=== PATIENT | female | born 1950 | race Caucasian/White ===

== ENCOUNTER 2019-09-05 10:53 | Day surgery (SDC) | payer MEDICARE ==
[2019-09-02 16:28] LABS: Absolute Lymphocytes (CBC) 1.8 K/uL (0.7-4.9); Basophils % 1.4 % (0-1.3); Hematocrit 36.6 % (36.0-45.0); Lymphocytes % 29.3 % (15.3-44.8); MPV 9.9 fL (7.6-11.3); RBC Red Blood Cell Count 4.09 M/uL (3.86-4.86)
[2019-09-02 16:33] LABS: Potassium 3.7 mmol/L (3.5-5.1)
--- NOTE | 2019-09-03 07:25 | EKG ---
Test Date: 2019-09-02 Test Time: 15:13:58 Engine Assembler: JEFF MEASUREMENT RESULTS: Intervals: Rate: 53 NE: 172 QRSD: 90 QT: 408 QTc: 382 Daisy: P: 72 NE: 172 QRS: 44 T: 65 INTERPRETIVE STATEMENTS: Sinus bradycardia Otherwise normal ECG No previous ECG available for comparison Electronically Signed On 09-03-19 07:23:43 LIABILITY ANALYST by Juan Garcia
--- OUTSIDE RECORDS SUMMARY | 2019-09-05 10:56 | XMS REPORT ---
:1950 Author Organization eClinicalWorks Care Team Providers Name Role Phone Zofia Whitaker Provider Role Unavailable Allergies No Known Allergies Problems Problem Type Condition Code Onset Dates Condition Status Problem CPAP (continuous positive airway Z99.89 Active pressure) dependence Problem Pain in left knee M25.562 Active Problem Other abnormal and inconclusive R92.8 Active findings on diagnostic imaging of breast Problem Pain of right sacroiliac joint M53.3 Active Assessment Encounter for screening mammogram Z12.31 Active for breast cancer Problem Depression screening Z13.31 Active Problem Onychomycosis B35.1 Active Problem Irritable bowel syndrome with K58.1 Active constipation Problem Pain in right knee M25.561 Active Problem S/P eye surgery Z98.890 Active Problem Ingrown toenail of right foot L60.0 Active Problem Depression, unspecified depression F32.9 Active type Problem Asthma, unspecified asthma J45.909 Active severity, unspecified whether complicated, unspecified whether persistent Problem Hypothyroidism, unspecified type E03.9 Active Problem History of cerebrovascular accident Z86.73 Active Problem Seasonal allergies J30.2 Active Problem History of CVA (cerebrovascular Z86.73 Active accident) without residual deficits Problem Tobacco abuse counseling Z71.6 Active Problem Abnormal mammogram R92.8 Active Problem MAME (obstructive sleep apnea) G47.33 Active Medications No Known Medications Results No Known Results Summary Purpose eClinicalWorks Submission
[2019-09-05] MEDS ORDERED: Ringers Lactate 1,000 ML IV ONE (11:11)
[2019-09-05] MEDS ORDERED: FENTANYL CITR 100 MCG/2 ML ONE ×2 (11:39→12:29)
[2019-09-05] MEDS ORDERED: MIDAZOLAM HCL 2 MG/2 ML INJ ONE (11:39)
[2019-09-05] MEDS ORDERED: PROPOFOL 200 MG/20 ML VIAL IV ONE (11:39)
[2019-09-05] MEDS ORDERED: LIDOCAINE 2% MPF 5 ML VIAL ONE (11:40)
[2019-09-05] MEDS: BUPIVACA 0.5%/EPI 0.0005%/PF 30 ML VIAL ONE ×2 (11:55→12:48)
[2019-09-05] MEDS: CEFAZOLIN/SWI 1gm 1 GM/10 ML SYR ONE ×2 (11:56→12:03)
[2019-09-05] MEDS ORDERED: dexAMETHasone 10 MG/ML VIAL ONE (12:29)
[2019-09-05] MEDS: Ringers Lactate 1,000 ML IV ONE ×2 (12:31→12:51)
[2019-09-05] MEDS ORDERED: ONDANSETRON 4 MG/2 ML VIAL ONE (12:49)
--- NOTE | 2019-09-05 12:54 | P.BOP ---
Preoperative diagnosis: left knee pain with mechanical symptoms Postoperative diagnosis: same with grade 3 cm medial, 2 PF, displaced MM tear Primary procedure: left knee arthoscopy with MM debridement Estimated blood loss: 10 Anesthesia: General Complications: None Transferred to: Recovery Room Condition: Good
[2019-09-05] MEDS: HYDROMORPHONE HCL 1 MG/ML INJ ONE ×2 (13:15→13:20)
[2019-09-05] MEDS ORDERED: TRAMADOL 37.5mg/APAP 325mg PER TAB ONE (13:49)
[2019-09-05 14:14] VITALS: BP 98/44; TEMP 97.3; O2SAT 94
--- NOTE | 2019-09-05 23:21 | OP ---
Date of Procedure: 09/05/2019 Surgeon: Valentino Chakraborty MD Preoperative Diagnosis: Left knee pain with mechanical symptoms. 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 2.Grade 2 chondromalacia of patellofemoral joint. 3.Displaceable medial meniscal tear. Procedure: Left knee arthroscopy with debridement of medial meniscal tear. Estimated Blood Loss: Less than 10 mL. Complications: No complications. Specimen: No pathology specimens sent. Indications For Operation: Ms. Gavin is a 69-year-old female who came to see me with complaints o f pain and mechanical symptoms in her left knee. She describes these symptoms primarily as being mec hanical. X-rays and MRI demonstrate she does have some degenerative articular lesions and she is juliette d that this is not helpful for degenerative articular problems. However, arthroscopy could help with the meniscal pathology and may alleviate her mechanical symptoms. She states she understands things as presented and agrees to proceed. Description Of Procedure: The patient was taken to the operating room and placed in supine position. General anesthesia was obtained by staff. Following this, a well-padded tourniquet was placed on t he superior left thigh. Left lower extremity was then prepped and draped in usual sterile fashion fo r the procedure. Following this, a standard medial arthroscopy portal was then placed with aspiratio n approximately 10 mL of rather normal-appearing synovial fluid. This is followed by placement of in ferolateral arthroscopy portal and the arthroscopic camera was then placed atraumatically with 1 pass . The knee was then sequentially examined including suprapatellar pouch, medial and lateral gutters, medial and lateral compartments, as well as notch and patellofemoral joint. Pertinent findings incl uded, what appeared to be, grade 3 chondromalacia of the medial femoral condyle as well as grade 2 ch ondromalacia of patellofemoral joint. Also seen is a medial meniscal tear. The lateral side was not readily addressed because of a significant fat pad. A standard inferior medial arthroscopy portal w as then placed with the aid of a needle for localization and this allowed for placement of a probe wi thin the knee. The medial meniscus was then debrided back to a firm hook stable and well contoured b ase. Shaver was also used to debride some fat pad, which allowed complete visualization of the later al compartment. Lateral compartment could be relatively free from any significant pathology. The la teral meniscus was probed throughout its length. The knee was then again assessed in all the above a reas with no further pathology seen, which is amenable to arthroscopic intervention. Therefore, the inferior arthroscopy portals were closed. A superior medial arthroscopy portal was used for placemen t of Marcaine with epinephrine. This was then closed. Knee was then placed in a well-padded sterile dressing, awakened and taken to the recovery room in good condition. There were no complications. /MODArin Voice ID: [id number] Report ID: [id number]
== END 2019-09-05 14:46 | disposition home or self-care (01) ==
LOC: OR 10:53
PROVIDERS: ATTEND Orthopaedic Surgery
PROC: 0SBD4ZZ Excision of Left Knee Joint, Percutaneous Endoscopic Approach (ICD-10-PCS; principal; 2019-09-05 12:00)
DX: S83.242A Other tear of medial meniscus, current injury, left knee, initial encounter (principal); M94.262 Chondromalacia, left knee; M22.42 Chondromalacia patellae, left knee; E03.9 Hypothyroidism, unspecified; G47.30 Sleep apnea, unspecified; F32.9 Major depressive disorder, single episode, unspecified; M19.90 Unspecified osteoarthritis, unspecified site; J45.909 Unspecified asthma, uncomplicated; Z88.6 Allergy status to analgesic agent; Z86.73 Personal history of transient ischemic attack (TIA), and cerebral infarction without residual deficits
CPT/HCPCS: 93005; 85025; 80048; 36415; 29881; J2704; J2250; J3010; J1100; J1170; J0690; J7120 ×2; J2405

== ENCOUNTER 2021-02-09 05:58 | Observation (INO) | payer OTHER ==
[2021-02-03 11:53] LABS: Absolute Lymphocytes (CBC) 1.6 K/uL (0.7-4.9); Basophils % 1.4 % (0-1.3); Hematocrit 40.6 % (36.0-45.0); Lymphocytes % 24.6 % (15.3-44.8); MPV 9.4 fL (7.6-11.3); RBC Red Blood Cell Count 4.62 M/uL (3.86-4.86)
--- NOTE | 2021-02-03 12:44 | RAD REPORT ---
EXAM DESCRIPTION: RAD - Chest Pa And Lat (2 Views) - 02/03/2021 11:45 am CLINICAL HISTORY: preop, pending knee surgery COMPARISON: None TECHNIQUE: Frontal and lateral views of the chest were obtained. FINDINGS: The lungs are fibrotic with flattened diaphragm. No failure, infiltrate or mass. Heart s ize is normal and central vasculature is within normal limits. No pleural effusion or pneumothorax s een. No acute bony finding noted. No aortic abnormality. IMPRESSION: Fibrotic lung pattern with no acute cardiopulmonary finding.
[2021-02-09] MEDS ORDERED: CEFAZOLIN/SWI 2gm 2 GM/20 ML SYR ONE (06:34)
[2021-02-09] MEDS ORDERED: Ringers Lactate 1,000 ML IV ONE ×2 (06:34→07:28)
[2021-02-09] MEDS ORDERED: CELECOXIB 100 MG CAPSULE ONE (06:41)
[2021-02-09] MEDS ORDERED: ACETAMINOPHEN 500 MG TAB ONE (06:41)
[2021-02-09] MEDS ORDERED: LIDOCAINE 1% MPF 5 ML VIAL ONE (06:46)
[2021-02-09] MEDS ORDERED: dexAMETHasone 10 MG/ML VIAL ONE ×2 (06:46→07:33)
[2021-02-09] MEDS ORDERED: NS 0.9% VIAL 10 ML ONE (06:46)
[2021-02-09] MEDS ORDERED: MIDAZOLAM HCL 2 MG/2 ML INJ ONE (06:47)
[2021-02-09] MEDS ORDERED: FENTANYL CITR 100 MCG/2 ML ONE (06:47)
[2021-02-09] MEDS ORDERED: BUPIVACAINE 0.25% PF 30 ML VIAL ONE ×2 (06:48→07:05)
[2021-02-09] MEDS ORDERED: HYDROMORPHONE HCL 1 MG/ML INJ ONE (06:48)
[2021-02-09] MEDS ORDERED: propofoL 200 MG/20 ML VIAL IV ONE (07:33)
[2021-02-09] MEDS ORDERED: LIDOCAINE 2% MPF 5 ML VIAL ONE (07:34)
[2021-02-09] MEDS ORDERED: KETAMINE HCL 500 MG/5 ML VIAL ONE (07:34)
[2021-02-09] MEDS ORDERED: KETOROLAC 30 MG/ML INJ ONE (07:34)
[2021-02-09] MEDS ORDERED: ONDANSETRON 4 MG/2 ML VIAL ONE (07:34)
[2021-02-09] MEDS ORDERED: TRANEXAMIC ACID 1,000 MG in NA CHLORIDE 0.9% 50 ML IV SCH (08:00)
[2021-02-09] MEDS ORDERED: GLYCOPYRROLATE 0.2 MG/ML SYR ONE (08:09)
[2021-02-09] MEDS ORDERED: ALBUTEROL INHALER 60 PUFF/8 GM IH PRN (10:24)
--- NOTE | 2021-02-09 10:24 | P.BOP ---
Preoperative diagnosis: left knee osteoarthritis Postoperative diagnosis: same Primary procedure: left total knee arthroplasty Secondary procedure: none Senior Care Assistant: NONE,NONE Estimated blood loss: 20 cc Specimen: left knee bone remnants Findings: see dictation Anesthesia: General Complications: None Implants: Biomet Igor Persona, 7 CR femur STD, F tibia, 35 patella, 11 mm MC poly Fluids & blood products: per anesthesia record; TT: 85 mins @ 300 mmHg Transferred to: Recovery Room Condition: Good
[2021-02-09] MEDS ORDERED: MORPHINE 2 MG/ML SYR IV PRN (10:26)
[2021-02-09] MEDS ORDERED: ONDANSETRON 4 MG/2 ML VIAL IV PRN (10:26)
[2021-02-09] MEDS ORDERED: DOCUSATE NA 100 MG CAP PO PRN (10:26)
[2021-02-09] MEDS ORDERED: HYDROCODONE/APAP 7.5/325 MG TAB PO PRN (10:26)
[2021-02-09] MEDS ORDERED: TRAMADOL HCL 50 MG TAB PO PRN (10:29)
[2021-02-09] MEDS: HYDROMORPHONE HCL 1 MG/ML INJ ONE ×2 (10:55→12:30)
[2021-02-09 11:20] LABS: Hematocrit 36.4 % (36.0-45.0)
[2021-02-09] MEDS ORDERED: PROMETHAZINE INJ 25 MG/ML AMP ONE (11:39)
--- NOTE | 2021-02-09 11:59 | RAD REPORT ---
EXAM DESCRIPTION: RAD - Knee Left 2 View - 02/09/2021 11:29 am CLINICAL HISTORY: Knee surgery FINDINGS: Postsurgical changes of a knee arthroplasty. Prosthesis is in good position. No fracture or dislocation
--- OUTSIDE RECORDS SUMMARY | 2021-02-09 12:29 | XMS REPORT | Continuity of Care Document ---
:1950 Author Organization [facility] t Address [address] [place] [address] Care Team Providers Name Role Phone Unavailable Unavailable Unavailable Problems This patient has no known problems. Allergies, Adverse Reactions, Alerts Allergy Allergy Status Severity Reaction(s) Onset Inactive Treating Comm ents Source Name Type Date Date Clinician ProAir Adverse Active Info Not [facility] Reaction Available [facility] Medications Ordered Filled Start Stop Current Ordering Indication Dosage Frequency Signature Comments Components Source Medication Medication Date Date Medication? Clinician (SIG) Name Name Alendronate Alendronate 2020-0 2020- No Zofia [address] [facility] Sodium Sodium 7-23 10-21 Millender 30 minutes [facility] before the [facility] 00 :00 first l food, Outpati beverage ent or Clinics medicine of the day with plain water Magnesium Magnesium Yes Zofia [address] [facility] Millender with a [facility] meal [facility] Aspirin Aspirin Yes Zofia [address] [facility] Adult Low Adult Low Millender [facility] - Dose Dose [facility] Liothyronin Liothyronin Yes Zofia [address] [facility] e Sodium e Sodium Millender on an L ukes - empty Memoria stomach l [facility] Prozac Prozac Yes Zofia [address] [facility] morning [facility] Diazepam Diazepam Yes Zofia [address] Millender as needed [facility] Ventolin Ventolin Yes Zofia [address] [facility] HFA HFA Millender needed for [facility] - sob/wheezi [facility] Wellbutrin Wellbutrin Yes Zofia [address] [facility] XL XL [facility] Gabapentin Gabapentin Yes Zofia [address] [facility] Millender [facility] Valium Valium Yes Zofia [address] [facility] Millender as needed [facility] Levothyroxi Levothyroxi Yes Zofia [address] [facility] ne Sodium ne Sodium Millender on an [facility] - empty Memoria stomach in l the Outpati morning ent Clinics Chantix Chantix Yes Zofia not [facility] Starting Starting Millender defined [facility] - Month Florin Month Florin [facility] Amitiza Amitiza Yes Zofia [address] [facility] Millender with food [facility] - and water [facility] Immunizations Ordered Filled Immunization Date Status Comments [facility] e Immunization Name Name FLUZONE HIGH DOSE FLUZONE HIGH DOSE 2019-09-[address] [facility] - OVER 65 OVER 65 00:00:00 [facility] Outpatient [facility] Procedures This patient has no known procedures. Encounters Start End Encounter Admission Attending Care Care Encounter Source Date/Time Date/Time Type Type Clinicians Facility Department ID 2021-02-08 2021-02-08 Outpatient [facility] [id number] [facility] 2021-02-07 2021-02-07 Out[facility] [id number] [facility] 2021-02-01 2021-02-01 [facility] [id number] [facility] 2021-01-31 2021-01-31 [facility] [id number] [facility] 2021-01-31 2021-01-31 [facility] [id number] [facility] 2021-01-18 2021-01-18 Out[facility] [id number] [facility] 2021-01-14 2021-01-14 [facility] [id number] [facility] 2020-12-30 2020-12-30 [facility] [id number] [facility] 2020-12-16 2020-12-16 [facility] [id number] [facility] 2020-12-16 2020-12-16 [facility] [id number] [facility] 2020-12-14 2020-12-14 [facility] [id number] [facility] 2020-12-07 2020-12-07 [facility] [id number] [facility] 2020-11-24 2020-11-24 [facility] [id number] [facility] 2020-11-24 2020-11-24 [facility] [id number] [facility] 2020-11-23 2020-11-23 [facility] [id number] [facility] 2020-11-23 2020-11-23 [facility] [id number] [facility] 2020-11-18 2020-11-18 [facility] [id number] [facility] 2020-11-16 2020-11-16 [facility] [id number] [facility] 2020-11-15 2020-11-15 [facility] [id number] [facility] 2020-11-05 2020-11-05 [facility] [id number] [facility] 2020-08-18 2020-08-18 [facility] [id number] [facility] 2020-08-06 2020-08-06 [facility] [id number] [facility] 2020-07-26 2020-07-26 [facility] [id number] [facility] 2020-07-26 2020-07-26 [facility] [id number] [facility] 2020-05-18 2020-05-18 [facility] [id number] [facility] 16:00:00 16:00:[address] [facility] Medicine l Medicine Outpati ent Clinics 2020-05-06 2020-05-06 [facility] [id number] [facility] 16:38:00 16:38:00 t [facility] Medicine l Medicine Outpati ent Clinics 2020-01-29 2020-01-29 [facility] [id number] [facility] 11:58:00 11:58:[address] [facility] Medicine l Medicine Outpati ent Clinics 2020-01-26 2020-01-26 [facility] [id number] [facility] 16:32:00 16:32:00 t [facility] Medicine Outpati ent Clinics 2020-01-15 2020-01-15 [facility] [id number] [facility] 16:05:00 16:05:00 t [facility] Medicine Outpati ent Clinics 2019-12-08 2019-12-08 [facility] [id number] [facility] 10:00:00 10:00:00 t [facility] Medicine Outpati ent Clinics 2019-09-22 2019-09-22 [facility] [id number] [facility] 10:00:00 10:00:00 t [facility] Medicine Outpati ent Clinics 2019-09-08 2019-09-08 [facility] [id number] [facility] 10:39:00 10:39:00 t [facility] Medicine Outpati ent Clinics 2019-08-02 2019-08-02 [facility] [id number] [facility] 19:37:00 19:37:00 t [facility] Medicine Outpati ent Clinics 2019-06-23 2019-06-23 [facility] [id number] [facility] 08:00:00 08:00:00 t [facility] Medicine Outpati ent Clinics 2019-05-22 2019-05-22 [facility] [id number] [facility] 14:40:00 14:40:00 t [facility] Medicine Outpati ent Clinics 2018-12-20 2018-12-20 [facility] [id number] [facility] 15:00:00 15:00:00 t [facility] Medicine Outpati ent Clinics 2018-10-11 2018-10-11 [facility] [id number] [facility] 13:45:00 13:45:00 t [facility] Medicine Outpati ent Clinics 2018-10-04 2018-10-04 [facility] [id number] [facility] 09[facility]45:00 09:45:[address] [facility] Medicine Medicine Outpati ent Clinics 2018-10-04 2018-10-04 [facility] [id number] [facility] 09:10:00 09:10:00 t [facility] Outpati ent Clinics 2018-10-03 2018-10-03 [facility] [id number] [facility] 10:27:00 10:27:00 t [facility] Medicine Outpati ent Clinics 2018-07-16 2018-07-16 [facility] [id number] [facility] 00:34:00 00:34:00 t [facility] Medicine Outpati ent Clinics 2018-07-06 2018-07-06 [facility] [id number] [facility] 01:50:00 01:50:00 t [facility] Medicine Outpati ent Clinics 2018-07-05 2018-07-05 [facility] [id number] [facility] 15:15:00 15:15:00 t [facility] Medicine Outpati ent Clinics 2018-06-27 2018-06-27 [facility] [id number] [facility] 16:29:00 16:29:00 t [facility] Medicine Outpati ent Clinics 2018-06-20 2018-06-20 [facility] [id number] [facility] 13:44:00 13:44:00 t [facility] Medicine Outpati ent Clinics 2018-06-12 2018-06-12 [facility] [id number] [facility] 14:16:00 14:16:00 t [facility] Medicine Outpati ent Clinics 2018-06-06 2018-06-06 [facility] [id number] [facility] 15:42:00 15:42:00 t [facility] Medicine Outpati ent Clinics 2018-04-09 2018-04-09 [facility] [id number] [facility] 21:50:00 21:50:00 [facility] 2018-04-09 2018-04-09 Outpatient Deandre Carrerat [id number] [facility] 10:45:00 10:45:00 [facility] Outpati ent Clinics 2018-02-22 2018-02-22 Outpatient Deandre Russ [id number] [facility] 13:18:00 13:18:00 [facility] Outpati ent Clinics 2018-01-10 2018-01-10 Outpatient Deandre Carrerat [id number] [facility] 14:45:00 14:45:00 [facility] Results This patient has no known results.
[2021-02-09] MEDS ORDERED: PNEUMOCOCCAL VACCINE 0.5 ML IMVAC ONE (14:00)
[2021-02-09 15:01] VITALS: BMI 25.7
[2021-02-09] MEDS: CEFAZOLIN/SWI 1gm 1 GM/10 ML SYR IV SCH (16:53)
[2021-02-09] MEDS ORDERED: CEFAZOLIN 2 GM in NA CHLORIDE 0.9% 100 ML IVPB SCH (17:00)
--- NOTE | 2021-02-09 17:45 | P.OP ---
Preoperative diagnosis: left knee osteoarthritis Postoperative diagnosis: same Primary procedure: left total knee arthroplasty Secondary procedure: none Anesthesia: general LMA Estimated blood loss: 20 cc Specimen: left knee bone remnants Findings: see dictation Operative Technique: Indication For Procedure: Ernestina is an 70 year-old female presenting to my clinic with signs, symptoms and x-ray findings consistent with a severe left knee osteoarthritis. I discussed with the patient at length risks and benefits associated with operative and nonoperative treatment. She had failed conservative treatment measures and had significant difficulties with ADLs secondary to her pain. We discussed operative treatment and elected to proceed with left total knee arthroplasty. She expressed understanding and elected to proceed with operative treatment. Description Of Procedure: After informed consent was obtained, the patient was identified in the preoperative holding area. The left lower extremity was marked. The patient was then taken to the PACU where he underwent a left lower extremity adductor canal block performed by Anesthesia. She was then taken to the operating room, transferred to the operating table in supine fashion, and placed under general anesthesia. Her left lower extremity was then prepped and draped in usual sterile fashion. A time-out was initiated. The correct patient and procedure were confirmed and identified. The patient did receive her preoperative prophylactic antibiotics. The left lower extremity was then exsanguinated and tourniquet was inflated to 300 mmHg. Approximately 15 cm longitudinal incision was made centered over the anterior aspect of the left knee. Dissection was then taken to the extensor mechanism and a medial parapatellar arthrotomy was performed. The patella was everted and dislocated laterally and the knee was flexed in the fat pad. There were multiple osteophytes and heterotopic bone superior to the patella that were removed. Medial lateral meniscus and ACL were all excised exposing the distal femur. Excess hypertrophic synovium was also excised within the suprapatellar pouch. The patient had an MRI of the left knee preoperatively for surgical planning and creation of cutting blocks. The cutting block was then placed over the distal femur and pins were then placed. The distal femoral cutting block was then placed over the pins. Knee joint was then used to ensure proper depth cut and the distal femur was then cut. The chamfer cutting guide was then placed over the distal end of the femur. Anterior, posterior cuts as well as anterior and posterior chamfer cuts were then made again confirming proper depth of the cut using an Daniel wing. Excess bone remnants were then sent to pathology for further evaluation. Next, attention was taken to the proximal tibia. A tibial jig and tibial cutting block was then placed on proximal aspect of the right t ibia and locked into position. Pins were then placed and alignment guide was then used to confirm proper alignment of the cut and then coronal and sagittal planes. Once this was confirmed, the cutting jig was placed over the pins and the proximal tibia was cut. Sizing trays were then selected and size 10 mm spacer was used and there was good overall balance in flexion and extension. Next, the trial implants were then placed using the size 7 standard CR femur and a size F tibia with a 11 mm poly. There was overall good range of motion and good stability Trial implants were then removed. The wound was then irrigated thoroughly with normal saline and the knee was then injected with 30 cc of 0.5% Marcaine both in the posterior capsule and mediallateral gutters as well as quadriceps tendon and periosteum. The tibia was then punched. The femur was drilled. The cement was then prepared on the back table. Cement was then placed first on the tibial surface followed by size F tibia. Excess cement was removed with [place] elevators. Size 7 standard CR femur was then placed on the distal femur after cement was placed on the distal femur. Excess cement was then removed and a size 11 mm trial poly was then placed. The knee was held in extension as the cement hardened. Undersurface of the patella was prepared debriding osteophytes using rongeurs as well as osteophytes had been debrided off the proximal tibia with rongeurs and osteotomes to aid with the medial tightness. Cement was placed on the undersurface of the patella after it was cut and a size 35 patella was placed. Once the cement was hardened, the knee was ranged, there was good overall stability both in flexion, extension and as well as stability with varus and valgus stresses. Trial poly was then removed and a size 11 mm CR poly was then placed and locked into position. The knee was then ranged again. There was good overall range of motion both for flexion and extension with good stability. The wound was then irrigated again thoroughly with normal saline using pulse lavage. Tourniquet was let down. Hemostasis was achieved using Bovie electrocautery. Extensor mechanism was then approximated using a #1 Vicryl bothin interrupted and running fashion. The fascia was then approximated using 0 Vicryl. Subcutaneous tissue was approximated with a 2-0 Vicryl. Skin was approximated using catherine. Sterile dressings were applied. The patient was awakened and transferred back in stable condition Complications: None Implants: Biomet Igor Persona 7 STD CR femur, F tibia, 35 patella, 11 mm MC poly Fluids & blood products: per anesthesia record; TT: 85 mins @ 300 mmHg Transferred to: Recovery Room Condition: Good
[2021-02-09] MEDS ORDERED: GABAPENTIN 300 MG CAP PO SCH (21:00)
[2021-02-09] MEDS ORDERED: MAGNESIUM CHLORIDE 64 MG TAB PO SCH (21:00)
[2021-02-10] MEDS: CEFAZOLIN/SWI 1gm 1 GM/10 ML SYR IV SCH ×2 (00:45→09:00)
[2021-02-10 00:50] VITALS: O2SAT 96
[2021-02-10] MEDS ORDERED: LEVOTHYROXINE SOD 0.088 MG TAB PO SCH (06:00)
[2021-02-10] MEDS ORDERED: ENOXAPARIN 30 MG/0.3 ML SQ SCH (06:00)
--- NOTE | 2021-02-10 08:34 | P.DS ---
Admission Date: 02/09/21 Discharge Date: 02/10/21 Disposition: DC HOME/HOME HEALTH CARE Discharge Condition: GOOD Reason for Admission: s/p left total knee arthroplasty Consultations: none Procedures: left total knee arthroplasty on 02/10/21 Brief History of Present Illness: Ernestina is a 70-year-old female who underwent left total knee arthroplasty on February 09, 2021. She was admitted to the floor in stable condition . Hospital Course: Ernestina underwent left TKA on February 09, 2021 without complication. She was admitted to the floor in stable condition postoperatively. Physical therapy was consulted and the patient mobilize safely with physical therapy on February 09, 2021 as well as February 10. She was given Lovenox for DVT prophylaxis while in the hospital. She will be discharged with hydrocodone and Xarelto. She will follow-up in 2 weeks for wound check and staple removal. Home health physical therapy was consulted to aid with mobilization while at home. Vital Signs/Physical Exam: Temp Pulse Resp BP Pulse Ox 97.2 F 57 16 88/55 L 94 02/10/21 04:33 02/10/21 04:33 02/10/21 04:33 02/10/21 04:33 02/10/21 04:33 Laboratory Data at Discharge: WBC 6.60 K/uL (4.3-10.9) 02/03/21 11:28 Hgb 12.2 g/dL (12.0-15.0) 02/09/21 10:50 Hct 36.4 % (36.0-45.0) 02/09/21 10:50 Plt Count 232 K/uL (152-406) 02/03/21 11:28 PT 11.5 SECONDS (9.5-12.5) 02/03/21 11:28 INR 1.00 02/03/21 11:28 APTT 29.9 SECONDS (24.3-36.9) 02/03/21 11:28 Sodium 140 mmol/L (136-145) 02/03/21 11:28 Potassium 4.0 mmol/L (3.5-5.1) 02/03/21 11:28 BUN 20 mg/dL (7-18) H 02/03/21 11:28 Creatinine 1.00 mg/dL (0.55-1.3) 02/03/21 11:28 Glucose 92 mg/dL (74-106) 02/03/21 11:28 Home Medications: Bupropion *Xl* [Wellbutrin XL*] 150 mg PO DAILY 09/02/19 Levothyroxine [Synthroid*] 88 mcg PO [id number] 09/02/19 Liothyronine Sodium [Cytomel] 10 mcg PO DAILY 09/02/19 Albuterol Sulfate [Proair Hfa] 8.5 gm IH PRN PRN 02/03/21 Alendronate Sodium 70 mg PO EVERY 7TH DAY 02/03/21 Ascorbic Acid [Vitamin C] 1,000 mg PO DAILY 02/03/21 Cholecalciferol (Vitamin D3) [Vitamin D3] 2,000 unit PO DAILY 02/03/21 Gabapentin 300 mg PO BEDTIME 02/03/21 Ginkgo Biloba 120 mg PO DAILY 02/03/21 Lactobacillus Combination No.4 [Probiotic] 1 each PO DAILY 02/03/21 Magnesium Chloride [Slow-Mag*] 2 tab PO BEDTIME 02/03/21 Omeprazole [Prilosec] 40 mg PO DAILY 02/03/21 Dillard Oil/[place]-3 Fatty Acids [Sv Dillard Oil 1,000 mg Softgel] 1 each PO BID 02/03/21 Ubidecarenone [Co Q-10] 100 mg PO DAILY 02/03/21 Zinc 50 mg PO DAILY 02/03/21 Hydrocodone 7.5/APAP 325 [[place] 7.5/325 mg*] 1 tab PO Q4H PRN tab 02/10/21 Physician Discharge Instructions: keep dressing clean and dry; start Xarelto tomorrow morning (02/11/21) with breakfast; work with HHPT and may be WBAT LLE Diet: Regular Activity: Weight bearing as tolerated Followup: Jignesh Kelly DO [Primary Care Provider] - Elijah Felton MD [ACTIVE - CAN ADMIT] - 1-2 Weeks
[2021-02-10] MEDS ORDERED: BUPROPION HCL XL 150 MG TAB PO SCH (09:00)
[2021-02-10] MEDS ORDERED: CELECOXIB 100 MG CAPSULE PO SCH (09:00)
[2021-02-10] MEDS ORDERED: LIOTHYRONINE SOD 5 MCG TAB PO SCH (09:00)
[2021-02-10] MEDS ORDERED: PANTOPRAZOLE 40MG TABLET PO SCH (09:00)
[2021-02-10] MEDS ORDERED: HOME MED 1 EA UNK (Omeprazole [Prilosec] 40 MG Capsule.Dr) PO SCH (09:00)
[2021-02-10 09:16] VITALS: BP 98/53; TEMP 97.4
[2021-02-16] MEDS ORDERED: ALENDRONATE 70 MG TAB PO SCH (09:00)
== END 2021-02-10 09:52 | disposition home or self-care (01) ==
LOC: OR 05:58 → 2ND 12:27
PROVIDERS: ADMIT Orthopaedic Surgery Sports Medicine; ATTEND Orthopaedic Surgery Sports Medicine
PROC: 0SRD069 Replacement of Left Knee Joint with Oxidized Zirconium on Polyethylene Synthetic Substitute, Cemented, Open Approach (ICD-10-PCS; principal; 2021-02-09 07:30)
DX: M17.12 Unilateral primary osteoarthritis, left knee (principal); E03.9 Hypothyroidism, unspecified; F32.9 Major depressive disorder, single episode, unspecified; J45.909 Unspecified asthma, uncomplicated; G47.33 Obstructive sleep apnea (adult) (pediatric); Z99.81 Dependence on supplemental oxygen; K58.1 Irritable bowel syndrome with constipation; Z79.82 Long term (current) use of aspirin; Z88.6 Allergy status to analgesic agent; Z86.73 Personal history of transient ischemic attack (TIA), and cerebral infarction without residual deficits; Z87.891 Personal history of nicotine dependence; Z82.49 Family history of ischemic heart disease and other diseases of the circulatory system; Z83.3 Family history of diabetes mellitus; Z82.3 Family history of stroke; Z80.3 Family history of malignant neoplasm of breast
CPT/HCPCS: 85025; 80048; 36415 ×2; 85610; 88305; 88311; 85730; 85018; 85014; 71046; 73560; 97110 ×2; 97116 ×2; 97139; 97161; 97530; 94010 ×2; 27447; U0002; J2704; J2550; J1650; J2250; J3010; J1100 ×2; J1170 ×2; J0690 ×2; J7120 ×2; J2405 ×2; 88304; G0378

== ENCOUNTER 2022-08-30 06:05 | Day surgery (SDC) | payer OTHER ==
[2022-08-25 08:26] LABS: Absolute Lymphocytes (CBC) 1.5 K/uL (0.7-4.9); Hematocrit 38.7 % (36.0-45.0); Lymphocytes % 28.4 % (15.3-44.8); MCV 88.1 fL (80-100); MPV 9.4 fL (7.6-11.3)
[2022-08-25 08:29] LABS: Protime INR 1.01
[2022-08-25 08:51] LABS: Potassium 3.7 mmol/L (3.5-5.1)
--- NOTE | 2022-08-25 09:21 | RAD REPORT ---
EXAM DESCRIPTION: RAD - Chest Pa And Lat (2 Views) - 08/25/2022 8:27 am CLINICAL HISTORY: pre op for surgery Chest pain. COMPARISON: Chest Pa And Lat (2 Views) dated 02/03/2021 TECHNIQUE: PA and lateral views of the chest were obtained. FINDINGS: The lungs are hyperexpanded compatible with COPD. The heart is upper limit of normal in si ze. No fracture or aggressive bony process. IMPRESSION: COPD without acute process identified. The USPSTF recommends annual screening for lung cancer with low-dose CT (LDCT) in adults aged 50 to 80 years who have a 20 pack-year smoking history and currently smoke or have quit within the past 15 years.
--- NOTE | 2022-08-25 15:55 | EKG ---
Test Date: 2022-08-25 Test Time: 08:04:14 Command Post Superintendent: JOSHUA MEASUREMENT RESULTS: Intervals: Rate: 46 WI: 184 QRSD: 88 QT: 414 QTc: 362 [place]: P: 70 WI: 184 QRS: 39 T: 72 INTERPRETIVE STATEMENTS: Marked sinus bradycardia Abnormal ECG Compared to ECG 09/02/2019 15:13:58 No significant changes Electronically Signed On 08-25-22 15:54:31 TOPOGRAPHY TECHNICIAN by Montrell Lockhart
[2022-08-30] MEDS ORDERED: Ringers Lactate 1,000 ML IV ONE ×2 (06:16→10:37)
[2022-08-30] MEDS ORDERED: CEFAZOLIN SODIUM 1 GM/VIAL ONE (06:16)
[2022-08-30] MEDS ORDERED: LIDOCAINE 1% MPF 5 ML VIAL ONE (06:56)
[2022-08-30] MEDS ORDERED: FENTANYL CITR 100 MCG/2 ML ONE (06:57)
[2022-08-30] MEDS ORDERED: EPINEPHRINE/PF 1 MG/ML AMP ONE ×2 (06:57→07:27)
[2022-08-30] MEDS ORDERED: MIDAZOLAM HCL 2 MG/2 ML INJ ONE (06:57)
[2022-08-30] MEDS ORDERED: dexAMETHasone 10 MG/ML VIAL ONE ×2 (06:57→07:42)
[2022-08-30] MEDS ORDERED: ROPLVACAINE HCL 40 ML ONE (06:57)
[2022-08-30] MEDS ORDERED: propofoL 200 MG/20 ML VIAL IV ONE (07:41)
[2022-08-30] MEDS ORDERED: ROCURONIUM 50 MG/5 ML VIAL IV ONE (07:42)
[2022-08-30] MEDS ORDERED: LIDOCAINE 2% MPF 5 ML VIAL ONE (07:42)
[2022-08-30] MEDS ORDERED: ONDANSETRON 4 MG/2 ML VIAL ONE (07:42)
[2022-08-30] MEDS ORDERED: KETOROLAC 30 MG/ML INJ ONE (07:42)
[2022-08-30] MEDS ORDERED: EPHEDRINE SULF 50 MG/ML VIAL ONE (08:23)
[2022-08-30] MEDS ORDERED: NS 0.9% VIAL 10 ML ONE ×2 (08:23→09:03)
[2022-08-30] MEDS ORDERED: DIPHENHYDRAMINE 50 MG/ML VIAL ONE (09:52)
--- NOTE | 2022-08-30 10:37 | P.BOP ---
Preoperative diagnosis: right shoulder rotator cuff tear, bicipital tendinitis, impingement syndrom Postoperative diagnosis: right shouler arthroscopic rotator cuff repair Primary procedure: right shoulder arthroscopic SLAP debridement Secondary procedure: right shoulder arthroscopic subacromial decompression Hat Blocker: NONE,NONE Estimated blood loss: 10 cc Specimen: none Findings: see dictation Anesthesia: General Complications: None Implants: 1- 5.5 mm Arthrex corkscrew, 2- 4.75 mm Arthrex swivelock Fluids & blood products: per anesthesia record Transferred to: Recovery Room Condition: Good ()
[2022-08-30 11:03] VITALS: O2SAT 95
--- NOTE | 2022-08-30 11:32 | RAD REPORT ---
EXAM DESCRIPTION: RAD - Shoulder 1 View - 08/30/2022 10:57 am CLINICAL HISTORY: shoulder surgery FINDINGS: Frontal view of the shoulder was obtained. No fracture or dislocation is seen. No significant abnormality displayed
[2022-08-30 15:57] VITALS: BP 100/55; TEMP 96.9
--- NOTE | 2022-08-30 19:59 | OP ---
Date of Procedure: 08/30/2022 Surgeon: Elijah Felton MD Preoperative Diagnoses: 1.Right shoulder rotator cuff tear. 2.Right shoulder biceps tenosynovitis. 3.Right shoulder impingement syndrome. Postoperative Diagnoses: 1.Right shoulder rotator cuff tear. 2.Right shoulder biceps tenosynovitis. 3.Right shoulder impingement syndrome. 4.Right shoulder SLAP tear. Procedures Performed: 1.Right shoulder arthroscopic rotator cuff repair. 2.Right shoulder arthroscopic SLAP tear debridement. 3.Right shoulder subacromial decompression. Anesthesia: General endotracheal. Fluids: Per Anesthesia record. Estimated Blood Loss: 10 cc. Complications: None. Implants: 1.One 5.5 mm Arthrex corkscrew. 2.Two 4.75 mm Arthrex SwiveLocks. Indication For Procedure: Ernestina is a 72-year-old female who presented to my clinic with signs, sympto ms, and MRI findings consistent with a right shoulder rotator cuff tear as well as bicipital tenosyno vitis and impingement syndrome. I discussed with the patient at length risks and benefits associated with operative and nonoperative treatment. She expressed understanding and elected to proceed with operative treatment. Description Of Procedure: After informed consent was obtained, the patient was identified in the pre operative holding area. The right upper extremity was marked. Patient was then brought back to the PACU where she underwent a right upper extremity interscalene block performed by the Anesthesia Team. The patient was then brought back to the operating room, transferred to the operating table in supi ne fashion, and placed under general endotracheal anesthesia. She was then placed in the beach chair position with her extremities well padded. The right upper extremity was then examined. The patien t had full range of motion without instability noted. The right upper extremity was then prepped and draped in usual sterile fashion. A time-out was initiated. Correct patient and procedure were conf irmed and identified. The patient did receive her preoperative prophylactic antibiotics. The right shoulder was injected with 30 cc of normal saline through the posterior portal position to distend th e capsule. An 11 blade was then used to create a posterior portal and the arthroscope was brought in via the posterior portal position. Under direct visualization, an anterior portal and cannula were placed. The patient was noted to have significant fraying at superior labrum with a type 1 SLAP tear . The SLAP tear was then debrided using an arthroscopic shaver to a smooth border. There was no sig nificant instability noted of the superior labrum. The patient did appear to have a Rocio complex w ith a sublabral foramen anteriorly. The patient had no significant fraying of the biceps tendon anch or and there was mild hyperemia of the biceps tendon, but no tenotomy was performed. The subscapular is was found to be intact and stable to probe. There were no loose bodies within the axillary pouch. Anterior and posterior labrum were found to be intact and stable. The undersurface of the supraspi natus was then identified and there was some significant fraying anteriorly. The lateral portal was created and the obturator was brought into the joint consistent with a full-thickness tear. The unde rsurface of the rotator cuff tear was then debrided using the arthroscopic shaver. The greater tuber osity was then debrided using the arthroscopic shaver to create a bleeding bony bed to aid with heali ng. The arthroscope was then brought to the subacromial space and a subacromial bursectomy was perfo rmed. The tear was then noted on the bursal side and it was debrided using the arthroscopic shaver. A stab incision was made just laterally and a 5.5 mm corkscrew anchor was then placed just lateral t o the articular surface. The sutures were then passed through the rotator cuff tear in an anterior t o posterior fashion and the sutures were tied in a horizontal mattress fashion for medial row fixatio n. The suture limbs were then crisscrossed and increased the surface area of the repair and 2 latera l row 4.75 mm Arthrex SwiveLock anchors were placed to aid with fixation. Suture limbs were then rem nikolas. One of the remaining sutures within the posterior SwiveLock anchor was then passed through the rotator cuff tissue posteriorly to reinforce repair. Attention was taken to performing the subacrom ial decompression. There was some fraying of the coracoacromial ligament. The undersurface of the a cromion was then debrided using a radiofrequency ablator and an acromioplasty was performed using art hroscopic luther. Arthroscopic instruments were then removed without complication. Wounds were then i rrigated thoroughly with normal saline. Portals were approximated using a 4-0 Monocryl. Sterile ale ssings were applied. The patient was placed in a shoulder immobilizer, awakened, and transferred to PACU in stable condition. Postoperative Plan: The patient will be nonweightbearing of her right upper extremity. She will fol low up next week for wound check and dressing change. We will begin physical therapy at 4 weeks post op per medium rotator cuff repair protocol. ALEX/KESHA Voice ID: [id number] Report ID: [id number]
== END 2022-08-30 12:40 | disposition home or self-care (01) ==
LOC: OR 06:05
PROVIDERS: ATTEND Orthopaedic Surgery Sports Medicine
PROC: 0RQJ4ZZ Repair Right Shoulder Joint, Percutaneous Endoscopic Approach (ICD-10-PCS; 2022-08-30)
PROC: 0RNJ4ZZ Release Right Shoulder Joint, Percutaneous Endoscopic Approach (ICD-10-PCS; principal; 2022-08-30 08:00)
DX: M75.121 Complete rotator cuff tear or rupture of right shoulder, not specified as traumatic (principal); M75.21 Bicipital tendinitis, right shoulder; M75.41 Impingement syndrome of right shoulder; M65.9 Synovitis and tenosynovitis, unspecified
CPT/HCPCS: 93005; 85025; 80048; 36415; 85610; 85730; 71046; 73020; 29827; 29826; 29822; 29807; J2704; J0171 ×2; J1200; J2001 ×2; J2250; J3010; J1100 ×2; J2795; A4216 ×2; J7120 ×2; J2405; J0690